=== PATIENT | male | born 1980 ===

== ENCOUNTER 2016-11-21 09:56 | Emergency (ER) | payer MEDICAID ==
[2016-11-21 10:06] VITALS: BP 135/81; PULSE 84; RESP 16; TEMP 98.8; O2SAT 93
--- NOTE | 2016-11-21 11:49 | EDPHY ---
H & P Stated Complaint: lac to 3rd digit l hand Source: Patient Exam Limitations: No limitations - Personal History Current Tetanus/Diphtheria Vaccine: Yes Tetanus Vaccine Date: within the past 10 years but unsure of the date - Medical/Surgical History Hx Asthma: No Hx Chronic Respiratory Disease: No Hx Diabetes: No Hx Cardiac Disease: No Hx Renal Disease: No Hx Cirrhosis: No Hx Alcoholism: No Hx HIV/AIDS: No Hx Splenectomy or Spleen Trauma: No Other PMH: l ankle surg - Social History Smoking Status: Never smoked HPI/ROS: CHIEF COMPLAINT: Left finger laceration HISTORY OF PRESENT ILLNESS: working on a ladder this morning when he slipped, causing ladder to crush his finger between the wall on the ladder. He did not fall or injure himself. During this he sustained a laceration on the left middle finger, radial aspect. There is no involvement of the nail. No numbness , tingling or motor changes. Bleeding is maintained with mild pressure. No extensor flexor deficits. mild to moderate pain. Worse with palpation. The rest. No injury to this lateral hand or wrist. No other associated complaints or modifying factors from REVIEW OF SYSTEMS: Ten systems reviewed and are negative unless otherwise noted in the HPI EXAMINATION General Appearance: Alert, no distress Head: normocephalic, atraumatic Eyes: Pupils equal and round, no conjunctival pallor or injection Neck: Normal inspection Respiratory: No dyspnea or retractions. No distress Cardiovascular: Pulses normal throughout. Brisk cap refill . 2+ radial pulses symmetric Gastrointestinal: No distention Back: non-tender, no bony abnormalities Neurological: A&O, sensory symmetric, strength symmetric Skin: Warm and dry. There is a 2.5 cm curvilinear laceration on the left middle finger, radial aspect. No involvement of the nail. No exposed tendon sheath. Neurovascular intact distally. No foreign body Extremities: tenderness to palpation of the left middle finger over the laceration. Full flexor and extensor apparatus I are intact. There are no deficits. Strength is 5/5 in the hand. Psychiatric: Mood and affect normal MDM: Laceration left middle finger without complication. Wound will be anesthetized, irrigated and closed. 12:45 p.m. wound has been closed without complication. He remained neurovascularly intact post procedure. There was no foreign body in the wound bed. Extensor and flexor apparatus were intact postprocedure. Discharged home with wound care as discussed. Return for signs or symptoms of infection as discussed. He will be discharged home with pain medication and Keflex. Patient comfortable this plan and discharged home in stable condition PROCEDURE: Digital block location: Left middle finger consent: Verbal procedure: Base of the left middle finger was cleaned with chlorhexidine. The finger was then anesthetized with 5 mL of 1% lidocaine plain. Good anesthesia. No complications. Tolerated procedure well without complication. PROCEDURE: Consent: Verbal Location: left middle finger Length of repair: 2.5 cm, curvilinear Complexity: moderate Layer involvement: single Anesthesia: digital block as above Irrigation: extensive Debridement: none Procedure description: After anesthesia, The wound was cleaned extensively. The wound was explored and no foreign body. Wound was approximated using 5-0 Prolene, 2 simple interrupted sutures x7. Good approximation of wound borders. He remains neurovascular intact distally. There is no deficit of the flexor or extensor apparatus postprocedure. Suture/Staple material: 5-0 Prolene Wound care: routine as discussed Suture/Staple removal: 7-10 days here or with primary care ED Precautions: Worsening pain. Erythema, edema, cyanosis, pallor, paresthesia or anesthesia. SUPERVISION: This patient was independently evaluated without the aide of supervising physician. (Erik Ledesma) Constitutional: Initial Vital Signs Temperature (C) 37.1 C 11/21/16 10:03 Heart Rate 84 11/21/16 10:03 Respiratory Rate 16 11/21/16 10:03 Blood Pressure 135/81 H 11/21/16 10:03 O2 Sat (%) 93 11/21/16 10:03 O2 Delivery Mode Room Air Allergies/Adverse Reactions: No Known Allergies Allergy (Verified 11/21/16 10:03) Home Medications: Medication Instructions Recorded Cephalexin [Keflex (*)] 500 mg PO TID #21 cap 11/21/16 oxyCODONE HCL/ACETAMINOPHEN 1 each PO Q4-6PRN PRN #20 tablet 11/21/16 [Percocet 5-325 mg Tablet] Medical Decision Making Other Provider: The patient was evaluated and managed by the [employer] Consultant/ Nurse Practitioner. My co-signature indicates that I have reviewed this chart and I agree with the findings and plan of care as documented. I am the secondary supervising physician. (Vaishnavi Basurto) Departure - Departure Disposition: Home, Routine, Self-Care Clinical Impression: Laceration of finger without complication Condition: Good Instructions: Care For Your Stitches (ED), Finger Laceration (ED) Additional Instructions: follow up here in 7 days for suture removal. Return sooner for signs or symptoms of infection as discussed. Minimal use of hand for the next 3 days, and gradually increase with caution. [place]errals: [place],. [Primary Care Provider] - As per Instructions Eugene Segovia DO [Doctor of Osteopathy] - As per Instructions Prescriptions: Cephalexin [Keflex (*)] 500 mg PO TID #21 cap oxyCODONE HCL/ACETAMINOPHEN [Percocet 5-325 mg Tablet] 1 each PO Q4-6PRN PRN # 20 tablet PRN Reason: Pain, Moderate
== END 2016-11-21 13:39 | disposition home or self-care (01) ==
PROC: 0HQGXZZ Repair Left Hand Skin, External Approach (ICD-10-PCS; principal; 2016-11-21)
DX: S61.213A Laceration without foreign body of left middle finger without damage to nail, initial encounter (principal); W18.40XA Slipping, tripping and stumbling without falling, unspecified, initial encounter; Y92.89 Other specified places as the place of occurrence of the external cause; Y99.8 Other external cause status; Y93.89 Activity, other specified